=== PATIENT | female | born 1950 | race African-American/Black ===

== ENCOUNTER 2017-03-17 15:10 | Outpatient (CLI) | payer MEDICARE ==
--- NOTE | 2017-03-17 15:59 | Mammography Report ---
BILATERAL MAMMOGRAM with CAD: HISTORY: Cancer screening. Comparison study is dated August 01, 2015. FINDINGS: There are scattered fibroglandular densities (approximately 25%-50% glandular). No mass, distortion, suspicious calcification, or skin change is seen. IMPRESSION: Negative mammogram. There is no mammographic evidence of malignancy. RECOMMENDATION: Follow-up per ACS guidelines. BI-RADS CATEGORY: 1 = Negative ACR BI-RADS MAMMOGRAPHIC CODES: 0 = Needs additional imaging evaluation; 1 = Negative; 2 = Benign; 3 = Probably benign; 4 = Suspicious; 5 = Malignant; 6 = Known biopsy-proven malignancy COMMENT: 1. Dense breast tissue, i.e., adenosis, fibrocystic changes, etc., may obscure an underlying neoplasm. 2. Approximately 10% of cancers are not detected with mammography. 3. A negative mammography report should not delay biopsy if a clinically suspicious mass is present. COMMENT: Patient follow-up letters are generated in [employer].
--- NOTE | 2017-03-17 16:38 | XRay Report ---
Chest 2 views. History: Cough. Findings: The heart and pulmonary vessels are normal. The lungs are clear. There is marked elevation of the right hemidiaphragm. There is diffuse osteopenia throughout the dorsal spine. Mild kyphosis is seen inferiorly. Impression: No acute findings.
== END 2017-03-17 15:11 | disposition home or self-care (01) ==
LOC: MAMMO 15:10
PROVIDERS: ATTEND Internal Medicine
DX: Z12.31 Encounter for screening mammogram for malignant neoplasm of breast (principal); R05 Cough; J98.6 Disorders of diaphragm; M85.88 Other specified disorders of bone density and structure, other site; M40.209 Unspecified kyphosis, site unspecified
CPT/HCPCS: 71020; G0202; 77067

== ENCOUNTER 2018-08-08 08:49 | Outpatient (CLI) | payer MEDICARE ==
[2018-08-08 09:57] LABS: Blood Urea Nitrogen 15 mg/dL (7-17)
[2018-08-08] MEDS ORDERED: NACL 0.9% 50 ML ONE (11:16)
--- NOTE | 2018-08-08 14:56 | Cat Scan Report ---
CT ABDOMEN PELVIS WITH CONTRAST: HISTORY: Left lower quadrant abdominal pain. COMPARISON: 02/03/16. TECHNIQUE: Helical CT in 1.25mm intervals following IV contrast. Sagittal and coronal reconstructions. FINDINGS: Lung bases: Normal. Liver: Normal. Biliary system: Normal. Pancreas: Normal. Spleen: Normal. Kidneys/ureters/bladder: Normal. Adrenal glands: Normal. Aorta: Normal. Intestines: Normal. Appendix: Not identified, correlate with surgical history. Pelvic viscera: Normal. Ascites: None. Adenopathy: None. Musculoskeletal: Mild osteopenia and degenerative changes in the thoracolumbar spine. IMPRESSION: Unremarkable CT scan of the abdomen and pelvis with contrast. No clear explanation for left lower quadrant abdominal pain.
== END 2018-08-08 08:50 | disposition home or self-care (01) ==
LOC: CT 08:49
PROVIDERS: ATTEND Internal Medicine Gastroenterology
DX: R10.32 Left lower quadrant pain (principal); E78.00 Pure hypercholesterolemia, unspecified; I10 Essential (primary) hypertension; J45.909 Unspecified asthma, uncomplicated; K21.9 Gastro-esophageal reflux disease without esophagitis; Z90.49 Acquired absence of other specified parts of digestive tract
CPT/HCPCS: 36415; 74177; 82565; 84520; Q9967